=== PATIENT | female | born 1965 | race Caucasian/White ===

== ENCOUNTER 2016-08-08 19:23 | Inpatient (IN) | payer MEDICARE, MEDICAID ==
[~2016-08-08] VITALS: Ht 167.6 cm; Wt 147.2 kg
--- NOTE | 2016-08-08 23:00 | NUR ---
PT ARRIVED TO UNIT VIA STRETCHER ACCOMPANIED BY EMS NABEEL. PT WAS SAFELY TRANSFERED TO BED AND VENTILATOR CONNECTED. NS STARTED AT 30ML/HR IN RIGHT A/C. PROPOFOL STARTED AT 15 MCG/KG/MIN OR 13.5 ML/HR IN RIGHT A/C. LEFT A/C PIV CHECKED FOR PATENCY AND VERFIED, AND SALINE LOCKED. RR EVEN. EXPIRATORY AND INSPIRATORY WHEEZING AUSCULTATED THROUGHOUT LUNG DOWNING WITH CRACKLES IN RHALES PRESENT IN ALL LOBES WELL. DIMINISHED IN LOWER LOBES. HYPOACTIVE BOWEL SOUNDS. S1S2 PRESENT NSR NOTED AT RATE OF 90. ETT 7.5 AND AT 34CM. TV 550, RATE 20, PEEP 5, 100% ATT. SPO2 98%. TEMP 98.8. PPP. CAP REFIL <3 SECONDS. OBESITY NOTED AND GENERALIZED SWELLING PRESENT. NOTABLE WEAKNESS IN ALL EXTREMETIES. BRUISING ON ARMS AND LEGS/FEET WITH DRAYNESS AND CRACKING ON FEET. RESNESS AROUND BILATERAL ANKLES. ARRIVED WITH HOME CPAP MACHING WITH MASK AND HEAD GREAT. SHIRT, BRA, UNDERWEAR, PANTS, AND TENNIS SHOES. NO OTHER PERSONAL BELONGINGS NOTED. PT ON MONITOR. BED LOW AND LOCKED, CALL LIGHT IN REACH. WILL CONTINUE TO MONITOR.
[2016-08-08 23:17] VITALS: BP 151/84
[2016-08-08] MEDS ORDERED: TENORMIN50 MG PO (23:19)
[2016-08-08] MEDS ORDERED: LEVEMIR100 U/M1 (23:19)
[2016-08-08] MEDS ORDERED: PROTONIX40 MG PO (23:20)
[2016-08-08] MEDS ORDERED: K-DUR20 MEQ PO (23:20)
[2016-08-08] MEDS ORDERED: SYNTHROID300 MCG PO (23:20)
[2016-08-08] MEDS ORDERED: REQUIP1 MG PO (23:21)
[2016-08-08] MEDS ORDERED: ZOCOR40 MG PO (23:21)
[2016-08-08] MEDS ORDERED: JANUVIA100 MG PO (23:21)
[2016-08-08] MEDS ORDERED: TRAZODONE HCL150 MG PO (23:22)
[2016-08-08] MEDS ORDERED: PROAIR HFA8.5 GM INH (23:23)
[2016-08-08] MEDS ORDERED: NEURONTIN600 MG PO (23:24)
[2016-08-08] MEDS ORDERED: BUMEX 1 MG TAB1 MG PO (23:24)
[2016-08-08] MEDS ORDERED: NITROSTAT0.4 MG SL (23:25)
[2016-08-08] MEDS ORDERED: TOPAMAX100 MG PO (23:25)
[2016-08-08] MEDS ORDERED: ZOLOFT100 MG PO (23:25)
--- NOTE | 2016-08-08 23:47 | NUR ---
SPOKE WITH DAUGHTER ON PHONE, PASSWORD SET UP. ALLERGIES VERIFIED.
[2016-08-09] VITALS (24 sets, daily range): BP systolic 105–134; BP diastolic 70–98; Ht 167.6 cm; Wt 147.2 kg
--- NOTE | 2016-08-09 | NUR ---
DR. MARTINE BIRCH
--- NOTE | 2016-08-09 00:04 | NUR ---
DR. GUI BIRCH.
--- NOTE | 2016-08-09 00:15 | NUR ---
RETURN CALL FROM DR. MESSER - STATUS REPORT GIVEN. NEW ORDERS REC'D.
--- NOTE | 2016-08-09 01:00 | NUR ---
ORAL CARE PROVIDED. BED LOW AND LOCKED. VSS ATT. WILL CONTINUE TO MONITOR.
--- NOTE | 2016-08-09 02:57 | NUR ---
REASSESSMENT COMPLETE, PLEASE SEE FLOW SHEETS FOR DETAILS. ORAL CARE AND TURNING PROVIDED. BED LOW AND LOCKED, CALL LIGHT IN REACH, VSS, WILL CONTINUE TO MONITOR.
[2016-08-09 03:45] LABS: BASOPHILS 0.2 % (0.0-2.0); EOSINOPHILS 0 % (0-7); HEMATOCRIT 38.4 % (36.0-48.0); HEMOGLOBIN 11.5 g/dL (12-16); IMMATURE GRANULOCYTES 0.3 % (0-5); LYMPHOCYTES 10.6 % (15-50); MCH 27.6 pg (26.0-34.0); MCHC 29.9 g/dL (31.0-37.0); MCV 92.1 fL (80.0-100.0); MEAN PLATELET VOLUME 10.9 fL (7.4-10.4); MONOCYTES 7.9 % (2-11); PLATELET COUNT 129 10x3/uL (130-400); RBC 4.17 10x6/uL (4.00-5.40); RDW 15.4 % (11.5-14.5); WBC 6.3 10x3/uL (4.8-10.8)
[2016-08-09 04:05] LABS: ALBUMIN 3.5 g/dL (3.4-5.0); ANION GAP 10.7 mmol/L (8-16); BILIRUBIN - TOTAL 0.34 mg/dL (0.2-1.3); CALCIUM 8.8 mg/dL (8.5-10.1); CREATININE - SERUM 1.5 mg/dL (0.6-1.3); POTASSIUM - SERUM 3.7 mmol/L (3.5-5.1); PROTEIN - SERUM 7.3 g/dL (6.4-8.2)
--- NOTE | 2016-08-09 05:00 | NUR ---
ON VENT, VSS, BED LOW AND LOCKED. ORAL CARE AND TURNING PROVIDED. VSS, WILL CONTINUE TO MONITOR.
--- NOTE | 2016-08-09 07:24 | NUR ---
REPORT RECD PT CARE ASSUMED. PT IS SEDATED ON VENTILATOR AROUSES TO STIMULI. S1S2 NOTED, SR PER CM. ADVENTICIOUS LUNG SOUNDS BILAT. SEE SHIFT ASSESSMENT FOR FURTHER DETAILS. PT HAS OGT/RUELAS IN PLACE. PPP-WEAK. VSS. WILL MONITOR.
--- NOTE | 2016-08-09 09:06 | NUR ---
ORAL CARE AND SUCTION PROVIDED TO PT. PT REPOSITIONED PER PROTOCOL. VSS. LAB AT BEDSIDE. WILL MONITOR.
--- NOTE | 2016-08-09 09:21 | NUR ---
CHEST X RAY PREFORMED AT THIS TIME. PT HAS COUGHING FIT. PT SUCTIONED.
[2016-08-09 09:45] LABS: CKMB 0.3 U/L (0.0-3.6)
[2016-08-09 09:48] LABS: TROPONIN-I < 0.017 ng/mL (0.000-0.060)
--- NOTE | 2016-08-09 10:33 | NUR ---
BLANKET APPLIED TO PT. VSS. WILL CONT TO MONITOR.
--- NOTE | 2016-08-09 12:06 | NUR ---
DR DOWNS AT BEDSIDE TO SEE PT AT THIS TIME.
--- NOTE | 2016-08-09 16:24 | NUR ---
PT REPOSITIONED, ORAL CARE AND SUCTION PROVIDED. VSS.
--- NOTE | 2016-08-09 16:31 | NUR ---
Patient Name: FRANK TRINH Admission Status: Elective Accout number: [id number] Admission Date: 08-08-2016 : 1965 Admission Diagnosis: Attending: WILLIE Current LOS: 1 Anticipated DC Date: TO BE DETERMINED Planned Disposition: TO BE DETERMINED Primary Insurance: [facility] Discharge Planning Comments: CM ATTEMPTED TO MEET WITH PT FOR INITIAL ASSESSMENT OF DISCHARGE NEEDS. PT WAS INTUBATED AND SLEEPING AT APPROXIMATELY 1320 HOURS. NO FAMILY WAS PRESENT. CM TO ATTEMPT ASSESSMENT OF PT AT A LATER TIME. Boarding Kennel Or Cattery Operator: Azeem Li
--- NOTE | 2016-08-09 19:00 | NUR ---
REPORT RECIEVED, INITIAL ASSESSMENT COMPLETE, PLEASE SEE FLOW SHEETS FOR DETAILS. ORAL CARE AND TURNING PROVIDED. BED LOW AND LOCKED, CALL LIGHT IN REACH. VSS ATT, NO SIGNS OF PAIN PRESENT. RESPONDS TO TACTILE STIMULI. WILL CONTINUE TO MONITOR.
--- NOTE | 2016-08-09 21:00 | NUR ---
ORAL CARE AND TURNING PROVIDED. BED LOW AND LOCKED, CALL LIGHT IN REACH. VSS, WILL CONTINUE TO MONITOR.
--- NOTE | 2016-08-09 23:00 | NUR ---
REASSESSMENT COMPLETE, PLEASE SEE FLOW SHEETS FOR DETAILS. ORAL CARE AND TURNING PROVIDED. VSS ATT, BED LOW AND LOCKED CALL LIGHT IN REACH. WILL CONTINUE TO MONITOR.
[2016-08-10] VITALS (25 sets, daily range): BP systolic 105–180; BP diastolic 49–94
--- NOTE | 2016-08-10 01:22 | NUR ---
ORAL CARE AND TURNING PROVIDED. VSS, BED LOW AND LOCKED, CALL LIGHT IN REACH. WILL CONTINUE TO MONITOR.
--- NOTE | 2016-08-10 02:56 | NUR ---
REASSESSMENT COMPLETE, PLEASE SEE FLOW SHEETS FOR DETAILS. BED LOW AND LOCKED. VSS ATT, ORAL CARE AND TURNING PROVIDED. WILL CONTINUE TO MONITOR.
[2016-08-10 05:26] LABS: BASOPHILS 0.1 % (0.0-2.0); EOSINOPHILS 0 % (0-7); HEMATOCRIT 37.3 % (36.0-48.0); HEMOGLOBIN 11.6 g/dL (12-16); IMMATURE GRANULOCYTES 0.1 % (0-5); LYMPHOCYTES 9.1 % (15-50); MCHC 31.1 g/dL (31.0-37.0); NEUTROPHILS 84.7 % (40-80); PLATELET COUNT 120 10x3/uL (130-400); RBC 4.14 10x6/uL (4.00-5.40); RDW 15.5 % (11.5-14.5); WBC 7.8 10x3/uL (4.8-10.8)
[2016-08-10 05:30] LABS: MCV 90.1 fL (80.0-100.0)
[2016-08-10 05:49] LABS: ALBUMIN 3.4 g/dL (3.4-5.0); ANION GAP 11.1 mmol/L (8-16); BILIRUBIN - TOTAL 0.47 mg/dL (0.2-1.3); CALCIUM 8.9 mg/dL (8.5-10.1); CARBON DIOXIDE 30.1 mmol/L (21.0-32.0); CREATININE - SERUM 1.4 mg/dL (0.6-1.3); MAGNESIUM - SERUM 1.6 mg/dL (1.8-2.4); PHOSPHOROUS 2.8 mg/dL (2.5-4.9); POTASSIUM - SERUM 3.2 mmol/L (3.5-5.1); PROTEIN - SERUM 7.6 g/dL (6.4-8.2)
--- NOTE | 2016-08-10 05:57 | NUR ---
ORAL CARE AND TURNING PROVIDED. VSS, BED LOW AND LOCKED, CALL LIGHT IN REACH. NO S&S OF ACUTE DISTRESS NOTED. WILL CONTINUE TO MONITOR.
--- NOTE | 2016-08-10 07:15 | NUR ---
REPORT RECIEVED FROM DRAFTER ENGINEERING NURSE. ASSESSMENT COMPLETED PER FLOWSHEET.
--- NOTE | 2016-08-10 09:30 | NUR ---
PT EXTUBATED AND PLACED ON 4L NC. TOLERATED WELL. NO COMPLICATIONS NOTED. WRIST RESTRAINTS REMOVED.
--- NOTE | 2016-08-10 10:15 | NUR ---
FULL BED BATH AND LINEN CHANGE PROVIDED. NO SKIN ISSUES NOTED WHEN TURNING AND REPOSITIONING. MIN REDNESS NOTED UNDER SKINFOLDS. POWDER APPLIED. PT MOBILE AND ABLE TO TURN SELF IN BED. WILL CONT TO ASSESS.
--- NOTE | 2016-08-10 12:10 | NUR ---
TYLENOL ADMINISTERED PER ORDERS FOR A HEADACHE. WILL REASSESSS.
--- NOTE | 2016-08-10 12:38 | NUR ---
PATIENT IS AWAKE AND ALERT. SHE STATES SHE LIVES AT HOME WITH HER , FRED, AND HER SON. SHE STATES SHE IS INDEPENDENT IN ADL'S. HER PCP IS DR. LEE IN [facility]. SHE GETS HER MEDS FROM [facility] IN [facility]. PATIENT STATES SHE HAS A CPAP THAT IS PROVIDED BY [facility] IN [place]. SHE HAS O2 THAT IS PROVIDED BY [facility] IN [facility]. SHE HAS A POWERCHAIR, WALKER, AND SHOWER CHAIR.PATIENT DENIES HOME HEALTH CARE BUT DOES HAVE PRIVATE CARE FROM [facility] THAT PROVIDES HOUSE CARE AND PRECINCT I POLICE SERGEANT. PATIENT STATES THERE IS A RAMP TO ENTER HER HOME. NO DISCHARGE NEEDS IDENTIFIED AT THIS TIME.
--- NOTE | 2016-08-10 15:15 | NUR ---
PLACED ON BED ANN. MODERATE AMOUNT OF BROWN LOOSE STOOL NOTED.
--- NOTE | 2016-08-10 17:01 | NUR ---
REPOSITIONED FOR COMOFRT. REQUESTED CPAP TO TAKE A NAP. CALL LIGHT IN REACH. WILL CONT TO ASSESS.
--- NOTE | 2016-08-10 19:30 | NUR ---
RECEIVED PATIENT RESTING IN BED WITH EYES OPEN, ASSESSMENT COMPLETED PER FLOWSHEET. PATIENT IS AO X4, DEMEANOR IS PLEASANT AND CALM. EYES PERRLA @ 3MM WITH BRISK RESPONSE, SCLERA IS WHITE. ORAL/NASAL MUCOSA IS MOIST AND INTACT, TONGUE IS MIDLINE. S1/S2 NOTED WITH PATIENT NSR ON TELEMETRY, HR 82 RHYTHMIC AND REGULAR. BREATHING IS EVEN AND EFFORTLESS ON 3L VIA NC, FINE CRACKLES NOTED BILATERAL UPPER WITH DIMINISHED LOWER. ABDOMEN IS DISTENDED AND OBESE, BOWEL SOUNDS ACTIVE X4. PATIENT VOIDS TO BEDPAN EASILY, TURNS SELF WITH NO ASSISTANCE. LIQUID DIARRHEA STOOLS NOTED WITH YELLOW/BROWN COLOR. FULL ROM ALL EXTREMITIES WITH SLIGHT WEAKNESS NOTED, ALL PULSES PALPABLE WITH CAP REFILL <3 SEC. 20G PIV NOTED R AC, PATENT WITH FLUIDS INFUSING. PATIENT STATES PAIN 4/10 IN HEAD, SHARP AND ACHING. PRN PAIN MEDS GIVEN, WILL REASESS. NO FURTHER NEEDS AT THIS TIME, ALL VSS AND WILL CONTINUE TO MONITOR.
--- NOTE | 2016-08-10 22:05 | NUR ---
SPOKE TO TARIK ESCALONA ABOUT UNCONTROLLED PAIN IN HEAD, RESTART TOPAMAX 100MG QHS FROM HOME MEDS. CONFIRMED AND ORDER PLACED IN SYSTEM, WILL CONTINUE TO MONITOR.
--- NOTE | 2016-08-10 23:00 | NUR ---
REASSESSMENT COMPLETED PER FLOWSHEET, PATIENT RESTING IN BED WITH EYES OPEN. BREATHING IS EVEN AND UNLABORED ON 3L O2 VIA NC WITH O2 SAT 97%. PATIENT UTILIZES HOME CPAP MACHINE CONNECTED TO 3L, WILL PLACE IT HERSELF WHEN SHE GOES TO SLEEP. PATIENT STATES HEADACHE "A LOT BETTER", RATES PAIN 2/10 WITH NO FURTHER NEEDS. PATIENT ASSISTED TO BEDPAN, 200ML LIQUID BROWN STOOL COLLECTED. ALL VSS AND WILL CONTINUE TO MONITOR.
[2016-08-11] VITALS (15 sets, daily range): BP systolic 130–175; BP diastolic 63–90
--- NOTE | 2016-08-11 01:00 | NUR ---
PATIENT RESTING IN BED WITH EYES CLOSED ON HOME CPAP @ 3L, BREATHING IS EVEN AND UNLABORED WITH OXYGEN SAT 97%. NO FURTHER NEEDS AT THIS TIME, ALL VSS AND WILL CONTINUE TO MONITOR.
--- NOTE | 2016-08-11 05:00 | NUR ---
PATIENT RESTING IN BED WITH EYES CLOSED, PATIENT ON 3L VIA NC. PATIENT ASSISTED TO BEDPAN, LIQUID BROWN STOOL NOTED. PATIENT DENIES PAIN OR OTHER NEEDS AT THIS TIME, ALL VSS AND WILL CONTINUE TO MONITOR.
[2016-08-11 05:36] LABS: BASOPHILS 0 % (0.0-2.0); EOSINOPHILS 0 % (0-7); HEMATOCRIT 39.7 % (36.0-48.0); HEMOGLOBIN 12.2 g/dL (12-16); IMMATURE GRANULOCYTES 0.3 % (0-5); LYMPHOCYTES 10.7 % (15-50); MCH 27.9 pg (26.0-34.0); MCHC 30.7 g/dL (31.0-37.0); MCV 90.6 fL (80.0-100.0); MEAN PLATELET VOLUME 11.4 fL (7.4-10.4); MONOCYTES 4.8 % (2-11); NEUTROPHILS 84.2 % (40-80); PLATELET COUNT 133 10x3/uL (130-400); RBC 4.38 10x6/uL (4.00-5.40); RDW 15.3 % (11.5-14.5); WBC 6.5 10x3/uL (4.8-10.8)
[2016-08-11 05:49] LABS: ALBUMIN 3.4 g/dL (3.4-5.0); ANION GAP 8.4 mmol/L (8-16); BILIRUBIN - TOTAL 0.36 mg/dL (0.2-1.3); CALCIUM 9.1 mg/dL (8.5-10.1); CARBON DIOXIDE 35.2 mmol/L (21.0-32.0); CREATININE - SERUM 1.3 mg/dL (0.6-1.3); MAGNESIUM - SERUM 1.6 mg/dL (1.8-2.4); PHOSPHOROUS 2.3 mg/dL (2.5-4.9); POTASSIUM - SERUM 3.6 mmol/L (3.5-5.1); PROTEIN - SERUM 7.4 g/dL (6.4-8.2)
--- NOTE | 2016-08-11 06:36 | NUR ---
REASSESSMENT COMPLETE, PATIENT RESTING IN BED WITH EYES CLOSED ON HOME CPAP. BREATHING IS SLIGHTLY SHALLOW WITH OXYGEN SAT 97% ON 3L VIA CPAP. PATIENT NSR ON TELEMETRY WITH HR 62, RHYTHMIC AND REGULAR. PATIENT DENIES PAIN OR OTHER NEEDS AT THIS TIME, ALL VSS AND WILL CONTINUE TO MONITOR.
--- NOTE | 2016-08-11 07:15 | NUR ---
REPORT RECIEVED FROM STAFF GENETIC COUNSELOR NURSE. PT RESTING IN BED QUIETLY. NO S/SX OF ACUTE DISTRESS NOTED AT THIS TIME. CALL LIGHT IN REACH. BED IN LOW POSITION. ASSESSMENT COMPLETED PER FLOWSHEET. WILL CONT TO ASSESS THROUGHOUT SHIFT FOR CHANGES.
--- NOTE | 2016-08-11 08:39 | NUR ---
Nutrition follow-up: Diet just advanced to renal ADA; extubated 08/10. Labs reviewed Will provide food choices with selective menus and honor food preferences within diet restrictions. RDN following.
--- NOTE | 2016-08-11 09:00 | NUR ---
REPOSITIONED FOR COMFORT. PARTAL LINEN CHANGE PROVIDED. CALL LIGHT IN REACH.
--- NOTE | 2016-08-11 12:10 | NUR ---
PLACED ON BEDPAN. MODERATE AMOUNT OF LOOSE STOOL NOTED TO BEDPAN.
--- NOTE | 2016-08-11 14:45 | NUR ---
REPORT CALLED TO [facility]. WILL TRANSPORT VIA W/C TO [facility].
--- NOTE | 2016-08-11 15:25 | NUR ---
REC'D PT FROM ICU. PT ARRIVED VIA W/C. TRANSFERED TO CHAIR AT BEDSIDE INDEPENDENTLY. PT A/O. ORIENTED PT TO ROOM. IV TO RT AC PATENT WITH LEVAQUIN INFUSING. RUELAS CATH PATENT TO BSD. SCD'S PLACED ON BED. PT NOT WEARING RIGHT NOW D/T WANTING TO SIT IN CHAIR. WEAR O2 AT 3L VIA NC. SLIGHT SOB NOTED WITH ACTIVITY. PT REQUEST H2O TO DRINK. CALL LIGHT WITH IN REACH. PT DENIES OTHER NEEDS AT THIS TIME. WILL CONT. TO MONITOR.
--- NOTE | 2016-08-11 16:15 | NUR ---
PT BELIEVES HER IV IS LEAKING. NURSE FLUSHED IV WITH NS, NO SIGNS OF LEAKING OF IV INFILTRAING NOTED. WILL CONT. TO MONITOR.
--- NOTE | 2016-08-11 17:59 | NUR ---
RUELAS CATH REMOVED PER PT REQUEST. TOLERATED WELL.
--- NOTE | 2016-08-11 20:44 | NUR ---
PT RESTING IN BED. ALERT/ORIENTED. SALINE LOCKED PIV TO RIGHT A/C. PT WANTING IT RELOCATED NOW. EXPLAINED THAT WILL ATTEMPT RELOCATION AFTER MEDS ARE PASSED. PT ALSO STATES HER MEDS ARE NOT BEING GIVEN CORRECTLY. SHE STATES SHE ONLY TAKES ATENOLOL ONCE A DAY AND IT HAS BEEN GIVEN TWICE DAILY SINCE SHE CAME AND NOW HER HEART RATE IS LOW. REVIEWED HOME MED LIST AND IT SHOWS ATENOLOL BID, PT STATES IT MAY SAY THAT, BUT HER MD ONLY HAS HER TAKE IT ONCE A DAY. WILL HOLD ATENOLOL TONIGHT. PT ALSO HAS BEEN RECIEVING CHRONULAC FOR ELEVATED AMONIA LEVEL AND DOES NOT WANT ANOTHER DOSE OF CHRONULAC TONIGHT. SEE COMPLETED SHIFT ASSESSMENT. CPOC. CALL LIGHT IN REACH.
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
[2016-08-12 01:57] VITALS: BP 157/80
[2016-08-12 05:26] VITALS: BP 141/65
[2016-08-12 06:25] LABS: BASOPHILS 0.1 % (0.0-2.0); HEMATOCRIT 42.6 % (36.0-48.0); IMMATURE GRANULOCYTES 0.1 % (0-5); LYMPHOCYTES 23.7 % (15-50); MCH 27.5 pg (26.0-34.0); MCHC 30.5 g/dL (31.0-37.0); MCV 90.1 fL (80.0-100.0); MEAN PLATELET VOLUME 11.2 fL (7.4-10.4); MONOCYTES 6.3 % (2-11); NEUTROPHILS 68.8 % (40-80); PLATELET COUNT 131 10x3/uL (130-400); RBC 4.73 10x6/uL (4.00-5.40); RDW 15.3 % (11.5-14.5); WBC 7.1 10x3/uL (4.8-10.8)
[2016-08-12 06:55] LABS: ALBUMIN 3.4 g/dL (3.4-5.0); ANION GAP 7.3 mmol/L (8-16); BILIRUBIN - TOTAL 0.4 mg/dL (0.2-1.3); CALCIUM 9.2 mg/dL (8.5-10.1); CARBON DIOXIDE 36.6 mmol/L (21.0-32.0); CREATININE - SERUM 1.2 mg/dL (0.6-1.3); PROTEIN - SERUM 7.7 g/dL (6.4-8.2)
[2016-08-12 06:56] LABS: POTASSIUM - SERUM 2.9 mmol/L (3.5-5.1)
--- NOTE | 2016-08-12 08:05 | NUR ---
NURSE ASSISTED PT WITH FILLING PUT MENU
[2016-08-12 08:19] VITALS: BP 134/83
--- NOTE | 2016-08-12 08:24 | NUR ---
ASSESSMENT DONE. PT SITTING UP ON SIDE OF BED EATING BREAKFAST. A/O. REFUSES LASIX. NURSE EXPLAINED RISKS OF REFUSES LASIX PT VERBALIZED UNDERSTANDING, BUT WILL NOT TAKE. STATES "I DONT' TAKE THEM AT HOME ALL THE TIME ANYWAY." PT IS NOT VERY RECEPTIVE TO EDUCATION. PT IS TEARFUL AND WANTS TO GO HOME. CALL LIGHT WITH IN REACH. WILL CONT. TO MONITOR.
--- NOTE | 2016-08-12 09:21 | NUR ---
RESP UL ON . CALL LIGHT IN REACH. NO NEEDS VOICED. WILL MONITOR.
--- NOTE | 2016-08-12 10:23 | NUR ---
TRANSFER DRIVER ATTEMPTED TO CALL PT'S DAUGHTER PER PT REQUEST, USING THE NUMBER PT PROVIDED. NO ANSWER. LEFT VOICEMAIL PROVIDING DAUGHTER WITH NUMBER TO PT'S ROOM.
--- NOTE | 2016-08-12 11:51 | NUR ---
PT REQUEST NURSE CALL HER . NO ANSWER. LEFT MESSAGE.
[2016-08-12 12:20] VITALS: BP 137/69
[2016-08-12] MEDS ORDERED: IPRAT-ALBUT 0.5-3 ML UPD (14:01)
[2016-08-12] MEDS ORDERED: BROVANA15 MCG/2 M INH (14:01)
[2016-08-12] MEDS ORDERED: CHRONULAC30 ML PO (14:02)
[2016-08-12] MEDS ORDERED: PULMICORT0.5 MG/21 UPD (14:04)
[2016-08-12] MEDS ORDERED: FLORAJEN3 CAPS460 MG PO (14:04)
--- NOTE | 2016-08-12 14:05 | NUR ---
PT'S IV INFILTRATED. IV REMOVED. PT TO D/C LATER TODAY.
[2016-08-12] MEDS ORDERED: LEVAQUIN750 MG PO (14:06)
[2016-08-12] MEDS ORDERED: PREDNISONE10 MG PO (14:06)
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
--- NOTE | 2016-08-12 16:48 | NUR ---
D/C INSTRUCTIONS AND RX GIVEN TO PT. PT'S TANSPORTATION WILL BE HERE AROUND MIDNIGHT PER PT. PT'S PORTABLE O2 IN ROOM. IV IS ALREADY OUT.
--- NOTE | 2016-08-12 18:10 | NUR ---
PT AWAITING TRANSPORTATION HOME. NO DISTRESS NOTED. DENIES NEEDS.
[2016-08-12 20:00] VITALS: BP 160/90
--- NOTE | 2016-08-12 21:54 | NUR ---
PT LEAVES VIA WC TO PERSONAL AUTO ACCOMPANIED BY FAMILY MEMBER. ALL BELONGINGS ACCOUNTED FOR AND FOLLOW WITH PT.
--- NOTE | 2016-08-27 13:49 | CN ---
PATIENT NAME:FRANK TRINH MEDICAL RECORD: [id number] : [birth year] LOCATION:. D.2128 ADMIT DATE: 08/08/16 ACCOUNT: [id number] CONSULTING PHYSICIAN: CANDACE DOWNS MD REFERRING PHYSICIAN: VIDAL FARLEY MD DATE OF CONSULTATION: 08/09/2016 CONSULT REQUESTING PHYSICIAN: Mingo Sandoval MD. REASON FOR CONSULTATION: Acute hypoxic hypercapnic respiratory failure and respiratory acidosis. HISTORY OF PRESENT ILLNESS: Ms. Trinh is a 51-year-old female who has a history of COPD and morbid obesity with obesity hypoventilation syndrome. The patient was transferred from [facility] in [place]. She presented to the ER with acute respiratory failure and distress. The patient was intubated and transferred over here. There are no immediate family member available. The patient's CO2 was high and she was in respiratory acidosis. The patient does have a history of respiratory failure in the past and she was on mechanical ventilation with a tracheostomy. REVIEW OF SYSTEMS: Details not obtainable. PAST MEDICAL HISTORY: 1. History of chronic obstructive pulmonary disease. 2. Obesity hypoventilation syndrome. 3. Morbid obesity. 4. History of respiratory failure, status post tracheostomy that has been closed. 5. Obstructive sleep apnea. 6. History of gout. 7. Hypothyroidism. 8. Hypertension. 9. Restless leg syndrome. 10. Gastroesophageal reflux disease. 11. Diabetes mellitus type 2 with a peripheral neuropathy. PAST SURGICAL HISTORY: 1. She has partial knee replacement. 2. History of tracheostomy that has been closed. 3. Cholecystectomy. ALLERGIES: SHE IS ALLERGIC TO CEPHALEXIN AND VANCOMYCIN. MEDICATIONS: On [employer] was reviewed. PERSONAL AND SOCIAL HISTORY: The patient is an ex-smoker. She is a drinker. FAMILY HISTORY: Noncontributory. PHYSICAL EXAMINATION: GENERAL: Now, the patient is orally intubated and sedated. VITAL SIGNS: The blood pressure is 107/73, pulse is 64, respirations 20, temperature 98.1 and SpO2 is 95%. She is on assist control with a tidal volume of 700, PEEP of 5 on 40% oxygen. CONSULT REPORT [id number] FRANK TRINH HEENT: Conjunctivae pink. Sclerae are nonicteric. Pupils are equal, round and reactive. NECK: Supple. No JVD. CHEST: There is no wheezing. There are crackles. HEART: Rate and rhythm are regular. Heart sounds are distant. ABDOMEN: Soft, bowel sounds present. No hepatosplenomegaly. RECTAL: Deferred. EXTREMITIES: No cyanosis and no clubbing. There is 1+ pedal edema. SKIN: Warm, normal turgor. CENTRAL NERVOUS SYSTEM: The patient is orally intubated and sedated. LABORATORY DATA: CBC with WBC 6.3, hemoglobin 11.5, hematocrit 38.4, the platelet count is 129. ABG: The pH is 7.21, pCO2 was 73.9, pO2 was 577, bicarbonate is 29.6. Chemistry: Sodium 142, potassium 3.7, BUN is 21 and creatinine is 1.5. Liver enzymes within normal range. The proBNP is 341. IMPRESSION: 1. Lentc-bg-jzghqqr hypoxic hypercapnic respiratory failure. 2. Respiratory acidosis secondary to [id number]-rc-epefhoe hypoxic hypercapnic respiratory failure. 3. Pulmonary edema, cannot rule out pneumonia, though the BNP is not very high. 4. Acute exacerbation of chronic obstructive pulmonary disease. 5. Congestive heart failure, possible chronic diastolic dysfunction. 6. History of asthma-chronic obstructive pulmonary disease overlap syndrome. 7. Obesity hypoventilation syndrome. 8. Obstructive sleep apnea, on CPAP. 9. Gastroesophageal reflux disease. 10. Diabetes mellitus type 2 with peripheral neuropathy. RECOMMENDATION: 1. We will continue the mechanical ventilation, adjust the setting. Albuterol/ipratropium nebulizer, Brovana and budesonide nebulizer. Start methylprednisolone IV. Start on empiric Levaquin. Check sputum for culture and sensitivity. 2. DVT and GI stress ulcer prevention. 3. Check sputum for culture. 4. If the patient is stable, we will start weaning her in the morning. Discussed with RN and respiratory therapy. Restart NG tube feedings. The critical care time is 45 minutes. TRANSINT:[id number] Voice Confirmation ID: [id number] DOCUMENT ID: [id number] CANDACE DOWNS MD at 1349 CC: [id number] DICTATION DATE: 08/09/16 1230 BOARD OF EDUCATION SECRETARY: 08/09/161948 DIS IN 08/12/16 [id number] [place] [address]
== END 2016-08-12 21:54 | disposition home or self-care (01) | DRG 208 ==
LOC: D.ICU 19:23 → D.M2 08-11 15:15
PROVIDERS: Family Medicine Adult Medicine; Internal Medicine Pulmonary Disease; ADMIT Emergency Medicine
PROC: 5A1945Z Respiratory Ventilation, 24-96 Consecutive Hours (ICD-10-PCS; principal; 2016-08-08)
DX: J96.22 Acute and chronic respiratory failure with hypercapnia (principal); I50.32 Chronic diastolic (congestive) heart failure; E66.2 Morbid (severe) obesity with alveolar hypoventilation; J44.1 Chronic obstructive pulmonary disease with (acute) exacerbation; Z68.43 Body mass index [BMI] 50.0-59.9, adult; J96.21 Acute and chronic respiratory failure with hypoxia; I11.0 Hypertensive heart disease with heart failure; E03.9 Hypothyroidism, unspecified; G25.81 Restless legs syndrome; K21.9 Gastro-esophageal reflux disease without esophagitis; E11.40 Type 2 diabetes mellitus with diabetic neuropathy, unspecified